=== PATIENT | female | born 2000 | race Caucasian/White ===

== ENCOUNTER → 2023-12-21 | Day surgery (SDC) | payer BC ==
[~2023-12-21] MED LIST: Midazolam 1 MG/ML 2 ML SDV IV ONE; Midazolam 1 MG/ML 2 ML SDV ONE; fentaNYL 100 MCG/2 ML SDV IV ONE; fentaNYL 100 MCG/2 ML SDV ONE
[2023-12-21] MEDS: Dextrose 5%-0.45% NaCl 1,000 ML IV SCH (06:34)
[2023-12-21] MEDS: fentaNYL 100 MCG/2 ML SDV IV ONE ×2 (06:57→06:58)
[2023-12-21] MEDS: Midazolam 1 MG/ML 2 ML SDV IV ONE ×2 (06:58→06:59)
== END ==
LOC: DL.ENDO 05:57
PROVIDERS: ATTEND Internal Medicine Gastroenterology
DX: R13.10 Dysphagia, unspecified (principal)
CPT/HCPCS: 43239; 81025; J2250; J3010; J7042